=== PATIENT | male | born 1980 | race Caucasian/White ===

== ENCOUNTER 2018-12-13 20:47 | Emergency (ER) | payer SELFPAY ==
[2018-12-13] MEDS ORDERED: Bacitracin Zinc 1 Packet ONE (21:35)
== END 2018-12-13 21:40 | disposition home or self-care (01) ==
LOC: BURERS 20:47
DX: S61.211A Laceration without foreign body of left index finger without damage to nail, initial encounter (principal); S61.213A Laceration without foreign body of left middle finger without damage to nail, initial encounter; W26.9XXA Contact with unspecified sharp object(s), initial encounter
CPT/HCPCS: 12002